=== PATIENT | female | born 1950 | race Caucasian/White ===

== ENCOUNTER 2016-09-22 19:03 | Emergency (ER) | payer OTHER, MEDICARE ==
[2016-09-22 19:14] VITALS: RESP 18
--- NOTE | 2016-09-22 19:26 | EDPHY ---
H & P Stated Complaint: cough, head congestion, green mucus, exposed to bronchitis HPI/ROS: HPI CHIEF COMPLAINT: Cough, wheezing, bronchitis, sinus congestion, left ear discomfort and fullness HISTORY OF PRESENT ILLNESS: This patient very pleasant 66-year-old female tells me she does not have any significant medical history does not take any daily medications except vitamins no cardiac or pulmonary history, no DVT or PE history, presents to the emergency room with 1 day of worsening bronchitic sounding cough with sometimes yellow-green sputum also has had rhinorrhea postnasal drip, left ear pain and sinus congestion. No fever. Has had chills. She is visiting from [place] she has been skiing when a park the last 5 days she is due to go home in 2 days. She decided come to the emergency room as she is having worsening bronchitic cough. No significant shortness of breath no chest pain. No vomiting.Patient denies pleuritic pain, hemoptysis, or significant shortness of breath or chest pain. No calf pain or calf swelling. Past Medical History: No significant medical history Past Surgical History: No significant surgical history Social History: denies daily use drugs alcohol tobacco products, lives in [place] visiting for ski trip. Family History: Noncontributory ROS REVIEW OF SYSTEMS: A comprehensive 10 point review of systems is otherwise negative aside from elements mentioned in the history of present illness. Exam Constitutional appears nontoxic triage nursing summary reviewed, vital signs reviewed, awake/alert. Vital signs have been reviewed. Eyes normal conjunctivae and sclera, EOMI, PERRLA. HENT left TM is fluid-filled but no significant disc bulge or erythema, right TM normal, clear rhinorrhea from nasal canal, posterior pharynx normal inspection, atraumatic, moist mucus membranes, no epistaxis, neck supple/ no meningismus, no raccoon eyes. Respiratory left lung wheezing faint, right lung clear,, normal breath sounds , no respiratory distress, no wheezing. Cardiovascular rate normal, regular rhythm, no murmur, no edema, distal pulses normal. Gastrointestinal soft, non-tender, no rebound, no guarding, normal bowel sounds, no distension, no pulsatile mass. Genitourinary no CVA tenderness. Musculoskeletal no midline vertebral tenderness, full range of motion, no calf swelling, no tenderness of extremities, no meningismus, good pulses, neurovascularly intact. Skin pink, warm, & dry, no rash, skin atraumatic. Neurologic awake, alert and oriented x 3, AAOx3, moves all 4 extremities equally, motor intact, sensory intact, CN II-XII intact, normal cerebellar, normal vision, normal speech. Psychiatric normal mood/affect. Heme/Lymph/Immune no lymphadenopathy. Differential Diagnosis: Includes but is not limited to bronchitis, upper respiratory tract infection, sinusitis, viral syndrome, pneumonia, viral pneumonia, bacterial pneumonia, Medical Decision Making: Plan for this patient two view chest x-ray to rule out focal pneumonia, DuoNeb breathing treatment. Re-evaluation: ED x-ray chest two view: Negative for acute cardiopulmonary disease. Image interpreted myself. No focal pneumonia pneumothorax cardiac silhouette narrow. Re-evaluation at this time 2006: Patient is resting comfortably no acute distress she feels much better after DuoNeb breathing treatment. Noted she is not hypoxic she has no fever she is resting comfortably good air movement on re- evaluation of her lungs. Her x-ray two view has been reviewed is unremarkable no focal pneumonia. Will place patient on prednisone burst, albuterol, azithromycin, Mucinex and Flonase. She understands drink lots of fluids she also understands return emergency room if she has any worsening symptoms questions or concerns. Source: Patient - Personal History Current Tetanus/Diphtheria Vaccine: Unsure Current Tetanus Diphtheria and Acellular Pertussis (TDAP): Unsure - Medical/Surgical History Hx Asthma: No Hx Chronic Respiratory Disease: No Hx Cardiac Disease: No Hx Renal Disease: No Hx Cirrhosis: No Hx Alcoholism: No Hx HIV/AIDS: No Hx Splenectomy or Spleen Trauma: No Other PMH: healthy - Social History Smoking Status: Never smoked Constitutional: Initial Vital Signs Temperature (C) 36.4 C 09/22/16 19:11 Heart Rate 80 09/22/16 19:11 Respiratory Rate 18 09/22/16 19:11 Blood Pressure 118/80 09/22/16 19:11 O2 Sat (%) 97 09/22/16 19:11 O2 Delivery Mode Room Air Allergies/Adverse Reactions: No Known Allergies Allergy (Unverified 09/22/16 19:10) Home Medications: Medication Instructions Recorded AZITHROMYCIN [Z-PACK] 250 mg PO DAILY #6 tab 09/22/16 Albuterol [Proventil Inhaler HFA 1 - 2 puffs IH Q4H #1 mdi 09/22/16 (*)] Fluticasone Nasal [Flonase Nasal 2 sprays NASAL DAILY #1 mdi 09/22/16 [place] (RX)] Guaifenesin [Guaifenesin ER] 600 mg PO BID #14 tab.er.12h 09/22/16 predniSONE 60 mg PO DAILY #15 tab 09/22/16 Medical Decision Making - Data Points Medications Given: Discontinued Medications Albuterol/Ipratropium (Duoneb) 3 ml IH EDNOW ONE Stop: 09/22/16 19:33 Last Admin: 09/22/16 19:55 Dose: 3 ml Departure - Departure Disposition: Home, Routine, Self-Care Clinical Impression: Upper respiratory disease Condition: Good Instructions: Acute Bronchitis (ED), Viral Syndrome (ED) Additional Instructions: 1.Please return emergency room if you have worsening symptoms questions or concerns includes high fever, coughing up blood or You do not feel well. 2.Make sure you stay well-hydrated. Prescriptions: Albuterol [Proventil Inhaler HFA (*)] 1 - 2 puffs IH Q4H #1 mdi AZITHROMYCIN [Z-PACK] 250 mg PO DAILY #6 tab Fluticasone Nasal [Flonase Nasal [place] (RX)] 2 sprays NASAL DAILY #1 mdi Guaifenesin [Guaifenesin ER] 600 mg PO BID #14 tab.er.12h predniSONE 60 mg PO DAILY #15 tab
[2016-09-22] MEDS ORDERED: IPRATROPIUM/ALBUTEROL 3 ML DEYVIAL IH ONE (19:32)
[2016-09-22 20:27] VITALS: BP 120/74; PULSE 71; TEMP 98.2; O2SAT 96
== END 2016-09-22 20:28 | disposition home or self-care (01) ==
LOC: EDSEX 19:03
DX: J06.9 Acute upper respiratory infection, unspecified (principal)